=== PATIENT | female | born 1995 | race Hispanic/Latino ===

== ENCOUNTER 2018-12-27 02:30 | Inpatient (IN) | payer BC, OTHER ==
[2018-12-27] MEDS ORDERED: CARBOPROST TROME 250 MCG/ML IM PRN (02:59)
[2018-12-27] MEDS ORDERED: PROMETHAZINE 25 MG/ML VIAL IM PRN (02:59)
[2018-12-27] MEDS ORDERED: Ringers Lactate 1,000 ML IV PRN (02:59)
[2018-12-27] MEDS ORDERED: MEPERIDINE HCL 25 MG/0.5 ML IV PRN (02:59)
[2018-12-27] MEDS ORDERED: METHYLERGONOVINE 0.2MG/ML AMP IM PRN (02:59)
[2018-12-27] MEDS ORDERED: BUTORPHANOL 1 MG/ML INJ IV PRN (02:59)
[2018-12-27] MEDS ORDERED: OXYTOCIN/LR 20 UNIT/1,000 ML BAG IV SCH ×2 (03:00→15:00)
[2018-12-27] MEDS ORDERED: Ringers Lactate 1,000 ML IV SCH (03:00)
[2018-12-27 03:21] VITALS: BMI 3718.3
[2018-12-27 03:56] LABS: Absolute Lymphocytes (CBC) 1.9 K/uL (0.7-4.9); Basophils % 0.3 % (0-1.3); Hematocrit 33.7 % (36.0-45.0); MPV 10.6 fL (7.6-11.3); RBC Red Blood Cell Count 3.72 M/uL (3.86-4.86)
[2018-12-27] MEDS ORDERED: FENTANYL CITR 100 MCG/2 ML IV ONE (04:25)
[2018-12-27] MEDS ORDERED: ROPIVACAINE HCL 100 ML IV PRN (04:25)
[2018-12-27] MEDS ORDERED: ROPIVACAINE HCL 0.2% 20ML AMP SQ ONE (04:26)
[2018-12-27] MEDS ORDERED: LIDOCAINE 1% MPF 30 ML VIAL ONE (14:33)
[2018-12-27] MEDS ORDERED: DIPHENHYDRAMINE 25 MG TAB/CAP PO PRN (14:59)
[2018-12-27] MEDS ORDERED: Oxycodone HCl/Acetaminophen 1 TAB TAB PO PRN ×2 (14:59)
[2018-12-27] MEDS ORDERED: BISACODYL 10 MG RECTAL SUPP RECT PRN (14:59)
[2018-12-27] MEDS ORDERED: ACETAMINOPHEN 500 MG TAB PO PRN (14:59)
[2018-12-27] MEDS ORDERED: DOCUSATE NA/SENNA CONC 1 TAB PO PRN (14:59)
[2018-12-27] MEDS ORDERED: Ringers Lactate 1,000 ML IV ONE (16:43)
[2018-12-27] MEDS: IBUPROFEN 200 MG TAB PO PRN (17:46)
--- NOTE | 2018-12-28 00:14 | OP ---
Surgeon: Archie De La Garza MD A 23-year-old primigravida, 38 weeks 4 days, came in in early labor and with rupture of membranes. C ontracting every 2 minutes. Received Stadol IV initially, then epidural anesthesia. Second stage of approximately 1 hour. Spontaneous vaginal delivery of an estimated 7-pound male , Apgars 9 an d 9. First-degree episiotomy then it extended to second-degree, repaired with 2-0 chromic. Schultze delivery of the placenta, was inspected and noted to be intact and normal. 350 mL estimated blood l oss. Rh positive, immune to Rubella. Negative beta strep screen. Tolerated all procedures well. Final Diagnoses: Term intrauterine , vaginal delivery, epidural anesthesia. TYSHAWN/JULIO C Voice ID: [id number] Report ID: [id number]
[2018-12-28] MEDS: IBUPROFEN 200 MG TAB PO PRN (07:10)
--- NOTE | 2018-12-28 15:42 | PREOPHP ---
Date of Admission: 12/27/2018 This 23-year-old primigravida, 38 weeks and 4 to 5 days, Rh positive, immune to Rubella. Negative be ta strep screen. Admitted with rupture of membranes and in labor, is now progressed to 4 cm, 70% to 80% effaced, vertex, -1 station. Clear fluid. FHTs normal, reactive. Patient is requesting epidura l anesthesia. She is being hydrated at this time. I think the baby is occiput posterior. Discussio n with the patient. She will start pelvic rocking. Full labor talk given. Anticipate delivery some time later today. TYSHAWN/JULIO C Voice ID: [id number]
--- NOTE | 2018-12-28 15:42 | PN ---
Patient has had epidural placed. He is quite comfortable. In fact, cannot really feel her contracti ons. She is solis regularly. She is now 5.5 cm but the baby is not descended since last pelvi c check and is still in occiput posterior position. The patient is doing pelvic rocks. Hopefully, t hat will affect rotation and will get faster progress. TYSHAWN/JULIO C Voice ID: [id number] Report ID: [id number]
[2018-12-28 16:23] VITALS: BP 108/50; TEMP 98.3
[2018-12-28 20:52] LABS: RPR (Rapid Plasma Reagin) NON-REACT (NON-REACT)
--- NOTE | 2018-12-29 05:30 | DS ---
Date of Discharge: 12/28/2018 A 23-year-old primigravida, 38 weeks 4 days, came in in active labor. Subsequently, delivered a 7 po unds, 6 ounce male infant, Apgars 9 and 9. First degree episiotomy extended to a second degree was r epaired with 2-0 chromic. Schultze delivery of the placenta, which was inspected and noted to be int act and normal. 350 mL blood loss estimate. Rh positive. Immune to Rubella. Negative beta strep s creen. ; afebrile, ambulating and voiding. Lochia is normal. She will be dismissed later today to report back to my office in 6 weeks for followup, to report any temperature elevation of 10 0 degrees or greater, severe pain, heavy bleeding, or any other type of abnormalities. Dismissed wit h tramadol at her request. She knows this goes through breast milk. Tdap and flu shots have already been administered during the . No post epidural problems. Final Diagnoses: Term intrauterine at 38 weeks 4 days, spontaneous labor, vaginal delivery , epidural anesthesia. TYSHAWN/JULIO C Voice ID: [id number] Report ID: [id number]
[2018-12-30 20:43] LABS: HBsAG Nonreactive (Nonreactive)
== END 2018-12-28 17:50 | disposition home or self-care (01) | DRG 807 ==
LOC: 2ND-WC 02:30
PROVIDERS: ADMIT Specialist; ATTEND Specialist
PROC: 10E0XZZ Delivery of Products of Conception, External Approach (ICD-10-PCS; principal; 2018-12-27)
PROC: 0KQM0ZZ Repair Perineum Muscle, Open Approach (ICD-10-PCS; 2018-12-27)
PROC: 0W8NXZZ Division of Female Perineum, External Approach (ICD-10-PCS; 2018-12-27)
DX: O70.1 Second degree perineal laceration during delivery (principal); Z37.0 Single live birth; Z3A.38 38 weeks gestation of pregnancy
CPT/HCPCS: 36415; 85025; 86592; 86901; 87340; 88307; J0595; J2210; J2550; J2590; J2795; J3010; J7120